=== PATIENT | female | born 1965 | race Two or more races ===

== ENCOUNTER 2024-01-20 09:31 | Emergency (ER) | payer BC ==
[~2024-01-20] VITALS: Ht 157.5 cm; Wt 86.2 kg
[2024-01-20] MEDS ORDERED: CYCLOBENZAPRINE 10 MG TABLET ONE (09:57)
[2024-01-20] MEDS ORDERED: KETOROLAC TROMETHAMINE INJ 30 MG/ML VIAL ONE (09:57)
[2024-01-20] MEDS: CYCLOBENZAPRINE 10 MG TABLET PO ONE (09:58)
[2024-01-20] MEDS: KETOROLAC TROMETHAMINE INJ 30 MG/ML VIAL IM ONE (10:01)
[2024-01-20] MEDS ORDERED: CYCL5TAB PO (10:26)
[2024-01-20 11:50] VITALS: BP 144/82; TEMP 98; O2SAT 97
== END 2024-01-20 11:51 | disposition home or self-care (01) ==
LOC: ER 09:34
DX: M54.59 Other low back pain (principal); I10 Essential (primary) hypertension; E11.9 Type 2 diabetes mellitus without complications; Z85.9 Personal history of malignant neoplasm, unspecified
CPT/HCPCS: 99283; 96372; J1885